=== PATIENT | male | born 1935 | race Caucasian/White ===

== ENCOUNTER 2018-08-22 21:32 | Emergency (ER) | payer MEDICARE, OTHER, SELFPAY ==
[2018-08-22 21:39] VITALS: BP 163/83; PULSE 68; RESP 18; TEMP 36.4; O2SAT 97; BMI 25.8
[2018-08-23 00:05] VITALS: BP 137/75; PULSE 70; RESP 16; O2SAT 100
--- NOTE | 2018-08-23 00:25 | ED_ITS ---
HPI - Extremity Problem General Chief complaint: Extremity Problem,Nontraumatic Stated complaint: THINKS HE HAD A STROKE Time Seen by Provider: 08/23/18 00:24 Source: patient Mode of arrival: ambulatory Limitations: no limitations History of Present Illness HPI Narrative: The patient developed right elbow pain earlier today, he had no trauma. He is on medications for hypertension, he was initially concerned about stroke. He has had no weakness, or numbness anywhere. He had only the right elbow pain, increased with motion. His blood pressure was 180 at that time. His blood pressure is much improved now, 135 as I visit him. The pain is decreasing. 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 He has no other other significant history of arthritis. He is right-hand dominant. Related Data Home Medications Medication Instructions Recorded Confirmed bimatoprost [Lumigan] 1 drp OP Q DAY #0 01/02/17 11/18/17 clopidogrel 75 mg PO Q DAY #0 01/02/17 11/18/17 doxazosin [Cardura XL] 8 mg PO Q DAY #0 01/02/17 11/18/17 hydrochlorothiazide 12.5 mg PO Q DAY #0 01/02/17 11/18/17 losartan 25 mg PO Q DAY #0 01/02/17 11/18/17 metoprolol succinate [Toprol XL] 25 mg PO Q DAY #0 01/02/17 11/18/17 timolol maleate [Timoptic] 1 drp OP #0 01/02/17 11/18/17 allopurinol 100 mg tablet 100 mg PO DAILY 11/18/17 11/18/17 amlodipine 10 mg tablet 10 mg PO DAILY 11/18/17 11/18/17 rosuvastatin 10 mg tablet 10 mg PO DAILY 11/18/17 11/18/17 Allergies Allergy/AdvReac Type Severity Reaction Status Date / Time No Known Drug Allergies Allergy Unverified 11/18/17 13:22 Review of Systems Constitutional Denies chills, Denies lethargy and Denies weakness Integumentary/Breasts Denies pruritus, Denies erythema, Denies rash and Denies wounds Neurologic Denies weakness Comments: No numbness or weakness in the right arm. [facility] Medical History (Updated 08/23/18 @ 08:46 by Vasiliy Ring MD) Hypertension (Acute) Osteoarthritis (Acute) Surgical History (Updated 08/23/18 @ 08:41 by Vasiliy Ring MD) Previous back surgery (Acute) Total knee replacement status (Acute) Social History Smoking Status: Former smoker alcohol intake: current Social History Smoking Status: Former smoker alcohol intake: current Exam Initial Vital Signs Initial Vital Signs: Vital Signs Temperature 97.5 F L 08/22/18 21:39 Pulse Rate 68 08/22/18 21:39 Respiratory Rate 18 08/22/18 21:39 Blood Pressure 163/83 H 08/22/18 21:39 Pulse Oximetry 97 08/22/18 21:39 Const General: cooperative and well developed Nutritional Appearance: well nourished Orientation: alert, awake, oriented x3 and not confused Neuro Gait: normal gait Motor: No muscle tone normal throughout Sensory Exam: sensory deficits noted Extrem Other: The patient complained of right elbow pain. On exam he has likely osteoarthritis. He cannot extend the elbow, dramatically different from the left elbow. He has pain with attempted full extension. The biceps and forearm are nontender. His full range of motion in right wrist. Her hand is neurovascularly intact Course Course Narrative: The patient was seen after an extended ear weight due to multiple high acuity patient's. He and his had already conversed with the nurse that they were considering leaving without being seen. I did evaluate the patient. Based on my assessment my intent was x-ray of the right elbow and likely give him information to arrange an orthopedics consult. The elbow x-ray was ordered. Anticipated or even x-ray, when I did there was no x-ray. Immuno STEMI the patient is had walked out after my initial evaluation. Orders Ordered: ED Orders 08/23/18 00:30 XR elbow RT min 3V Stat Vital Signs - 8 hr 08/23/18 00:41 08/23/18 00:53 Pulse Rate 62 60 Respiratory Rate 17 18 Blood Pressure 159/75 H Blood Pressure [Left Arm] 159/75 H Pulse Oximetry 96 Discharge Plan Departure Patient Disposition: Left Against Medical Advice Clinical Impression: Patient left before treatment completed, Elbow pain, right Discharge Date/Time: 08/23/18 00:58 Interventions: ED Discharge Assessment Last Done: 08/23/18 00:53 Activity Restrictions/Additional Instructions: During the exam it was suggested the patient see an orthopedic surgeon. 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 He has no local physician is unclear if he will do anything to do with the elbow. Prescriptions: No Action allopurinol 100 mg tablet 100 mg PO DAILY RF: 0 amlodipine 10 mg tablet 10 mg PO DAILY RF: 0 rosuvastatin [Crestor] 10 mg tablet 10 mg PO DAILY RF: 0 bimatoprost [Lumigan] 0.01 % drops 1 drp OP Q DAY Qty: 0 RF: 0 clopidogrel 75 MG tablet 75 mg PO Q DAY Qty: 0 RF: 0 losartan 25 MG tablet 25 mg PO Q DAY Qty: 0 RF: 0 hydrochlorothiazide 12.5 MG capsule 12.5 mg PO Q DAY Qty: 0 RF: 0 doxazosin [Cardura XL] 8 MG tablet extended release 24hr 8 mg PO Q DAY Qty: 0 RF: 0 timolol maleate [Timoptic] 0.25 % drops 1 drp OP Qty: 0 RF: 0 metoprolol succinate [Toprol XL] 25 MG tablet extended release 24 hr 25 mg PO Q DAY Qty: 0 RF: 0 Stand Alone Forms: Against Medical Advice
[2018-08-23 00:41] VITALS: BP 159/75; PULSE 62; RESP 17; O2SAT 96
[2018-08-23 00:53] VITALS: BP 159/75; PULSE 60; RESP 18
== END 2018-08-23 00:58 | disposition left against medical advice (07) ==
PROVIDERS: Emergency Provider Emergency Medicine
DX: M25.521 Pain in right elbow (principal); Z53.20 Procedure and treatment not carried out because of patient's decision for unspecified reasons
CPT/HCPCS: 99282

== ENCOUNTER 2021-12-04 11:26 | Inpatient (IN) | payer MEDICARE, OTHER, SELFPAY ==
[2021-12-04] VITALS (12 sets, daily range): BP systolic 135–176; BP diastolic 73–90; PULSE 59–74; RESP 15–24; TEMP 35.7–36.8; O2SAT 96–98; BMI 26.3; BMI 27.7
--- NOTE | 2021-12-04 11:56 | DI.CT.S_ITS ---
PROCEDURE: CT HEAD/BRAIN WO CON INDICATIONS: possible stroke TECHNIQUE: Noncontrast 4.5 mm thick angled axial sections acquired from the foramen magnum to the vertex, with coronal and sagittal reformats. For radiation dose reduction, the following was used: automated exposure control, adjustment of mA and/or kV according to patient size. COMPARISON: [facility], CT, CT ANGIO HEAD AND NECK, 12/04/2021, 12:23. [facility], CT, HEAD WITHOUT CONTRAST, 12/04/2008, 19:50. FINDINGS: Image quality: Mild streak artifact can be seen through the skull base. CSF spaces: Basal cisterns are patent. No extra-axial fluid collections. The ventricles are symmetric in size and shape. Brain: No intracranial bleeds or masses. There is cerebral volume loss for age, with resultant ventricular and sulcal prominence. There are periventricular and deep white matter chronic small vessel ischemic changes. There is intracranial internal carotid artery atherosclerosis. Skull and face: Calvarium and visualized facial bones appear intact, without suspicious lesions. Sinuses: There is complete opacification of the visualized right maxillary sinus. The paranasal sinuses are otherwise unremarkable. No abnormal fluid is seen within the mastoid air cells. IMPRESSION: No acute intracranial hemorrhage is seen. No acute intracranial process is seen. If there is strong clinical suspicion for an acute stroke, please consider a brain MRI for further evaluation, as it is more sensitive (assuming that there is no contraindication to MRI). Focal right maxillary sinus disease is noted. Dictated by: Manish Barkley M.D. on 12/04/2021 at 11:54 Approved by: Manish Barkley M.D. on 12/04/2021 at 11:55
--- NOTE | 2021-12-04 11:57 | DI.CT.S_ITS ---
PROCEDURE: CT ANGIO HEAD AND NECK INDICATIONS: possible stroke TECHNIQUE: After the administration of intravenous contrast, 1 mm thick sections acquired from the aortic arch through the [place] of [place]. Post-contrast 4.5 mm thick sections then re-acquired from the foramen magnum to the vertex. 3-dimensional pskucba-nhtgflfrg-yofmkmllbv (MIP) and/or volume rendering reformats were acquired of the central intracranial vasculature and neck separately. For radiation dose reduction, the following was used: automated exposure control, adjustment of mA and/or kV according to patient size. COMPARISON: [facility], CT, CT HEAD/BRAIN WO CON, 12/04/2021, 12:23. [facility], CR, XR CHEST 1V, 12/04/2021, 12:06. FINDINGS: Image quality: Mild streak artifact can be seen through the skull base. BRAIN: CSF spaces: Ventricles are normal in size and shape. Basal cisterns are patent. No extra-axial fluid collections. Brain: No midline shift. No intracranial bleeds or masses. [place]-white matter interface appears intact. Skull and face: Calvarium and facial bones appear intact, without suspicious lesions. Orbits appear normal. Sinuses: Focal right maxillary sinus disease is seen, with complete opacification. There is demineralization of the medial wall of the right maxillary sinus. Sinuses and mastoids are otherwise clear. HEAD CT ANGIOGRAPHY: Anterior circulation: Intracranial internal carotid arteries are normal in size and flow. The flow within the paired anterior cerebral arteries is normal and symmetric. The flow within the middle cerebral arteries is normal and symmetric. The anterior communicating artery is seen. No aneurysms are seen. Posterior circulation: Visualized portions of the vertebral arteries demonstrate normal caliber, and join to form a normal appearing basilar artery. There is a prominent left posterior communicating artery seen, with an accompanying diminutive left P1 segment. This is attributed to a type origin of the left posterior cerebral artery, which is considered to be a normal developmental variant of typically no clinical consequence. Flow within the posterior cerebral arteries is normal and symmetric. No aneurysms are seen. NECK CT ANGIOGRAPHY: Carotid system: The great vessels demonstrate a conventional anatomy as they arise from the aortic arch. The origins of the common carotid arteries appear patent. The common carotid arteries demonstrate normal caliber and courses. The bifurcation regions , left worse than right. There is approximately 30% narrowing seen involving the left proximal internal carotid artery and there is approximately 20% narrowing involving the right proximal internal carotid artery. The more distal internal carotid arteries demonstrate normal caliber, although they are highly tortuous. Posterior circulation: The origins of the vertebral arteries both appear widely patent. The more superior extracranial extracranial portions of both vertebral arteries also demonstrate normal courses and calibers. The left vertebral artery is dominant to the right. Soft tissues: Visualized neck soft tissues demonstrate no suspicious abnormalities. Mild emphysematous changes can be seen at the lung apices. Bones: No suspicious bony lesions. Visualized cervical spine appears normally aligned. C5-C6 postoperative hardware is seen. Focal degenerative change is seen involving the C1-C2 interface anteriorly. Sternotomy wires are seen. IMPRESSION: No hemodynamically significant stenosis can be seen. Incidental note is made of: Fuhjmy-yb-Csqgow developmental anomalies. Left vertebral artery dominant to the right Chronic right maxillary sinus disease Highly tortuous distal internal carotid arteries. C5-C6 postoperative hardware Mild emphysematous changes Sternotomy Any quantitative measurements of stenosis were performed using NASCET criteria. Dictated by: Manish Barkley M.D. on 12/04/2021 at 11:56 Approved by: Manish Barkley M.D. on 12/04/2021 at 12:02
--- NOTE | 2021-12-04 12:01 | DI.RAD.S_ITS ---
PROCEDURE: XR CHEST 1V INDICATIONS: Possible stroke TECHNIQUE: One view of the chest was acquired. COMPARISON: None. FINDINGS: Surgical changes and devices: Sternotomy wires and aortic valve prosthesis can be seen. There is partial visualization of cervical spine fixation hardware. Lungs and pleura: Lungs are clear. No pleural effusions or pneumothorax. Mediastinum: The cardiac contours are within normal limits. The aorta demonstrates calcification and tortuosity. Bones and chest wall: No suspicious bony lesions. Age-appropriate bony degenerative changes are seen. Overlying soft tissues appear unremarkable. IMPRESSION: Clear lungs. Postoperative and degenerative changes are seen. Dictated by: Manish Barkley M.D. on 12/04/2021 at 11:28 Approved by: Manish Barkley M.D. on 12/04/2021 at 11:28
--- NOTE | 2021-12-04 12:07 | ED_ITS ---
HPI - Neuro Symptoms/Deficit General Chief Complaint: Neuro Symptoms/Deficit Stated Complaint: stroke during the night (2am) Time Seen by Provider: 12/04/21 12:01 Source: patient Mode of arrival: Ambulatory Limitations: no limitations History of Present Illness HPI Narrative: This is a 86-year-old male history of hypertension, gout, prior valve replacement and possible cardiac stent. Who comes to emergency department with complaint of stroke. Patient states last night he was sleeping in his easy chair he woke up in the middle of the night and states he tried to get out of the bed but he could not and he was too weak. He appreciated that his right side his working less than normal. He states this morning he still moving slow and feels like it is more on the right side compared to the left. He also not iced some speech change and his neighbor who is present states they no significant slurring to his speech which is atypical. Patient is normally quite active and is not able to ambulate is easily or quickly today. Patient denies any numbness or tingling in his extremities. He denies any headaches, no acute vision changes, denies chest pain, shortness of breath, no nausea or vomiting, no issues with bowel movements or urination. States he has a remote history of stroke and describes it as having a stent placed in his chest. Patient states that he had a stent placed in his chest which may be cardiac, had valve replacement which he states is poor seen but denies CABG, had multiple orthoped ic surgeries and states he had a right femur fracture in 2020 still has some chronic pain in this lower extremity. He does not think he is ever had aneurysm or triple a repair. Patient denies any allergies. No tobacco, 1-1/2 alcoholic drinks daily, no illicit he uses some topical THC in his right lower extremity. He lives in [place] and spent his moser locally in [place]. His primary care is Dr. Kimbrough in [facility]. Patient's medications include valsartan, amlodipine, allopurinol, doxazosin, metoprolol patient states he does not take any aspirin or other blood thinners. He states he is supposed to take aspirin but has quit some time ago. Patient is . On Anticoagulants: No Related Data Home Medications Medication Instructions Recorded Confirmed doxazosin 8 mg tablet,extended 8 mg PO Q DAY ##0 01/02/17 12/04/21 release 24 hr (Cardura XL) metoprolol succinate 25 mg 50 mg PO Q DAY ##0 01/02/17 12/04/21 tablet,extended release 24 hr (Toprol XL) allopurinol 100 mg tablet 200 mg PO DAILY 11/18/17 12/04/21 amlodipine 10 mg tablet 5 mg PO BID 11/18/17 12/04/21 valsartan 160 mg tablet 160 mg PO BID 12/04/21 12/04/21 Allergies Allergy/AdvReac Type Severity Reaction Status Date / Time No Known Drug Allergies Allergy Unverified 11/18/17 13:22 Review of Systems Review of Systems ROS Unobtainable: All systems reviewed & are unremarkable except as noted in HPI and below Hematologic/Lymphatic On Anticoagulants: No Patient History Medical History Hypertension Osteoarthritis Surgical History Previous back surgery Total knee replacement status Social History household members: none Smoking Status: Former smoker alcohol intake: current Smoking Status: Former smoker Substance Use Type: does not use Exam Narrative Exam Narrative: GEN: well nourished, well appearing male, alert and oriented x [default value], patient appears to be in mild distress. HEENT: Atraumatic, pupils are equal round reactive to light, extraocular movements are intact, nares are clear, TMs are clear with no fluid, there is no conjunctival pallor. Throat is clear without any exudates, erythema, tonsillar enlargement or uvular deviation, no facial droop with smile but I do appreciate some decreased movement of the right cheek puffing of cheeks. HEART: Regular rate and rhythm without murmur, clicks, rubs. LUNGS:Lungs clear to auscultation, no wheezes, rales, crackles, chest moves symmetrically ABD:bowel sounds normal, soft, non-tender, no guarding, rebound, rigidity, no ma sses noted, no hepatosplenomegaly MSCL: Non-tender, no muscle atrophy, muscles strength 5/5 upper and lower extremities although patient does appear to have a little bit more difficulty with his right leg but he does mention that he has more pain on the right side, full range of motion. Gait not tested. NEURO:CN 2-12 intact, sensation normal,finger nose finger test normal, heel gonzalez test -patient has some very mild difficulty on the right but does have chronic pain in that lower extremity, no issues with the left heel to his right leg, patient does have some slurred speech, no aphasia. Initial Vital Signs Initial Vital Signs: Vital Signs Temperature 98.2 F 12/04/21 11:42 Pulse Rate 74 12/04/21 11:42 Respiratory Rate 20 12/04/21 11:42 Blood Pressure 176/90 H 12/04/21 11:42 Pulse Oximetry 98 12/04/21 11:42 Oxygen Delivery Method 12/04/21 11:42 Scores NIH Stroke Scale Level of Conciousness: Alert, keenly responsive Ask month/age: Answers both questions correctly. Open/close eyes, close hand: Performs both tasks correctly Best gaze horizontal: Normal Visual kumar: No visual loss Facial palsy: Minor paralysis, flattened nasolabial fold, asymmetry on smiling Left arm drift: No drift for full 10 sec Right arm drift: No drift for full 10 sec Left leg drift: No drift for full 5 sec Right leg drift: Drifts down, not to bed Limb ataxia: Present in one limb Sensory on face/arms/legs: Normal, no sensory loss Best language: No aphasia, normal Dysarthria: Mild to mod,some slurring Extinction or inattention: No abnormality Total NIH Stroke scale score: 4 Course Orders Ordered: ED Orders 12/04/21 11:41 Complete Blood Count AUTO DIFF Stat Comprehensive Metabolic Panel Stat Magnesium Stat Partial Thromboplastin Time Stat Prothrombin Time INR Stat Troponin & CK Cardiac Panel Stat 12/04/21 11:56 CT head/brain wo con Stat 12/04/21 11:57 CT angio head and neck Stat 12/04/21 12:01 XR chest 1V Stat 12/04/21 13:06 COVID19 -Nasal RAPID/Pre-Proc Stat 12/04/21 13:16 Urine Culture Stat Urine Drug Screen, Rapid Stat Urine Microscopic Stat 12/04/21 13:23 Urine Culture Stat 12/04/21 16:20 Consult to Discharge Planning Routine Consult to Occupational Therapy Evaluate & Treat Consult to Physical Therapy Evaluate & Treat Education, smoking cessation ONGOING Acetaminophen (Acetaminophen 325 Mg Tablet) 650 mg PO Q6HR PRN PRN Reason: Fever/Mild Pain (1-3) Aspirin (Aspirin Ec 81 Mg Tablet) 81 mg PO DAILY MAYDA Atorvastatin Calcium (Atorvastatin 20 Mg Tablet) 80 mg PO BEDTIME MAYDA Clopidogrel Bisulfate (Clopidogrel 75 Mg Tablet) 75 mg PO DAILY MAYDA Labetalol HCl (Labetalol 20 Mg/4 Ml Syringe) 5 mg IV Q4HR PRN PRN Reason: for BP >220/120 Discontinued Medications Aspirin (Aspirin 81 Mg Chew Tab) 324 mg PO NOW ONE Stop: 12/04/21 14:04 Last Admin: 12/04/21 14:10 Dose: 324 mg Documented By: SB Atorvastatin Calcium (Atorvastatin 20 Mg Tablet) 40 mg PO BEDTIME MAYDA Clopidogrel Bisulfate (Clopidogrel 75 Mg Tablet) 300 mg PO NOW ONE Stop: 12/04/21 16:42 Last Admin: 12/04/21 17:20 Dose: 300 mg Documented By: HCW Consultations Consultation #1: Dr. Vega, hospitalist. Kindly accepts for admission. Head CT CT angio do not show acute changes, aspirin, no other clear cause for symptoms is weakness has been improving he is able to ambulate but appreciate some weakness still in the right although NIH he does quite well, he has some chronic right femur pain which might be affecting his leg but he does clearly have some dysarthria. Vital Signs Vital signs: Vital Signs - 8 hr 12/04/21 11:42 12/04/21 12:00 12/04/21 12:05 Temperature 98.2 F Pulse Rate 74 65 64 Respiratory Rate 20 18 18 Blood Pressure 176/90 H 165/77 H Pulse Oximetry 98 96 97 Oxygen Delivery Method Room Air Room Air Room Air 12/04/21 12:29 12/04/21 12:30 12/04/21 12:30 Temperature Pulse Rate 60 68 Respiratory Rate 22 Blood Pressure 148/73 H Pulse Oximetry 98 97 Oxygen Delivery Method Room Air 12/04/21 13:00 12/04/21 13:15 12/04/21 13:15 Temperature Pulse Rate 59 L 61 Respiratory Rate 18 16 Blood Pressure 157/75 H Pulse Oximetry 98 97 Oxygen Delivery Method 12/04/21 13:30 12/04/21 14:00 12/04/21 14:30 Temperature Pulse Rate 61 59 L 60 Respiratory Rate 24 16 22 Blood Pressure Pulse Oximetry 98 97 97 Oxygen Delivery Method Room Air MDM - Neuro Symptoms/Deficit Lab Data Result diagrams: 12/04/21 11:41 12/04/21 11:41 Labs: Lab Results 12/04/21 12/04/21 12/04/21 Range/Units 11:41 11:41 11:41 WBC 4.5 (4.5-11.0) X10^3/uL RBC 4.86 (4.5-5.9) X10^6/uL Hgb 15.9 (13.5-17.5) g/dL Hct 46.4 (41-53) % MCV 95.4 (80-100) fL MCH 32.8 (26-34) PG MCHC 34.4 (30-36) % RDW 15.6 H (11.6-14.8) % Plt Count 139 L (150-400) X10^3/uL Neut % (Auto) 73.0 (50-75) % Lymph % (Auto) 15.5 L (25-40) % Mathews % (Auto) 8.6 (3-14) % Eos % (Auto) 2.2 (2-4) % Baso % (Auto) 0.7 (0-2) % Neut # (Auto) 3300 (7424-8159) /uL Lymph # (Auto) 700 L (5127-7504) /uL Mathews # (Auto) 400 (0-900) /uL Eos # (Auto) 100 (0-450) /uL Baso # (Auto) 0 (0-100) /uL PT 12.0 (10.1-12.7) SECONDS INR 1.0 (0.9-1.3) APTT 31 (26-36) SECONDS Sodium 143 (137-145) mmol/L Potassium 4.1 (3.4-5.1) mmol/L Chloride 108 H (98-107) mmol/L Carbon Dioxide 27 (22-32) mmol/L BUN 20 (9-20) mg/dL Creatinine 1.00 (0.66-1.25) mg/dL Estimated GFR > 60 (>60) mL/min BUN/Creatinine Ratio 20.0 (6-22) Glucose 99 (80-110) mg/dL Hemoglobin A1c (4.0-6.0) % Calcium 9.2 (8.4-10.2) mg/dL Magnesium 1.9 (1.6-2.3) mg/dL Total Bilirubin 1.4 H (0.2-1.3) mg/dL AST 27 (17-59) IU/L ALT 22 (<50) IU/L Alkaline Phosphatase 78 (38-126) U/L Total Creatine Kinase 41 L (55-170) U/L CK-MB (CK-2) TNP CK-MB (CK-2) Rel Index TNP Troponin I < 0.012 (0.01-0.034) ng/mL Total Protein 8.1 (6.3-8.2) g/dL Albumin 4.5 (3.5-5.0) g/dL Globulin 3.6 (1.7-4.1) g/dL Albumin/Globulin Ratio 1.3 (1.0-2.8) TSH (0.47-4.68) uIU/mL Urine RBC (0-5/HPF) Urine WBC (0-5/HPF) Ur Squamous Epith Cells (0-5/HPF) Urine Bacteria (None) Urine Yeast (None) Ur Culture Indicated? U Opiates 300ng/mL cut (Negative) Ur Oxycodone Screen (Negative) Urine Methadone Screen (Negative) Ur Barbiturates Screen (Negative) U Tricyclic Antidepress (Negative) Ur Phencyclidine Scrn (Negative) Ur Amphetamines Screen (Negative) U Methamphetamines Scrn (Negative) Ur MDMA Scrn (Ecstasy) (Negative) U Benzodiazepines Scrn (Negative) Urine Cocaine Screen (Negative) U Marijuana (THC) Screen SARS-CoV-2 (PCR) (Negative) 12/04/21 12/04/21 12/04/21 Range/Units 11:41 11:41 13:06 WBC (4.5-11.0) X10^3/uL RBC (4.5-5.9) X10^6/uL Hgb (13.5-17.5) g/dL Hct (41-53) % MCV (80-100) fL MCH (26-34) PG MCHC (30-36) % RDW (11.6-14.8) % Plt Count (150-400) X10^3/uL Neut % (Auto) (50-75) % Lymph % (Auto) (25-40) % Mathews % (Auto) (3-14) % Eos % (Auto) (2-4) % Baso % (Auto) (0-2) % Neut # (Auto) (1271-9252) /uL Lymph # (Auto) (0551-2503) /uL Mathews # (Auto) (0-900) /uL Eos # (Auto) (0-450) /uL Baso # (Auto) (0-100) /uL PT (10.1-12.7) SECONDS INR (0.9-1.3) APTT (26-36) SECONDS Sodium (137-145) mmol/L Potassium (3.4-5.1) mmol/L Chloride (98-107) mmol/L Carbon Dioxide (22-32) mmol/L BUN (9-20) mg/dL Creatinine (0.66-1.25) mg/dL Estimated GFR (>60) mL/min BUN/Creatinine Ratio (6-22) Glucose (80-110) mg/dL Hemoglobin A1c 5.2 (4.0-6.0) % Calcium (8.4-10.2) mg/dL Magnesium (1.6-2.3) mg/dL Total Bilirubin (0.2-1.3) mg/dL AST (17-59) IU/L ALT (<50) IU/L Alkaline Phosphatase (38-126) U/L Total Creatine Kinase (55-170) U/L CK-MB (CK-2) CK-MB (CK-2) Rel Index Troponin I (0.01-0.034) ng/mL Total Protein (6.3-8.2) g/dL Albumin (3.5-5.0) g/dL Globulin (1.7-4.1) g/dL Albumin/Globulin Ratio (1.0-2.8) TSH 0.96 (0.47-4.68) uIU/mL Urine RBC (0-5/HPF) Urine WBC (0-5/HPF) Ur Squamous Epith Cells (0-5/HPF) Urine Bacteria (None) Urine Yeast (None) Ur Culture Indicated? U Opiates 300ng/mL cut (Negative) Ur Oxycodone Screen (Negative) Urine Methadone Screen (Negative) Ur Barbiturates Screen (Negative) U Tricyclic Antidepress (Negative) Ur Phencyclidine Scrn (Negative) Ur Amphetamines Screen (Negative) U Methamphetamines Scrn (Negative) Ur MDMA Scrn (Ecstasy) (Negative) U Benzodiazepines Scrn (Negative) Urine Cocaine Screen (Negative) U Marijuana (THC) Screen SARS-CoV-2 (PCR) Negative (Negative) 12/04/21 12/04/21 Range/Units 13:16 13:16 WBC (4.5-11.0) X10^3/uL RBC (4.5-5.9) X10^6/uL Hgb (13.5-17.5) g/dL Hct (41-53) % MCV (80-100) fL MCH (26-34) PG MCHC (30-36) % RDW (11.6-14.8) % Plt Count (150-400) X10^3/uL Neut % (Auto) (50-75) % Lymph % (Auto) (25-40) % Mathews % (Auto) (3-14) % Eos % (Auto) (2-4) % Baso % (Auto) (0-2) % Neut # (Auto) (9737-5382) /uL Lymph # (Auto) (4239-7974) /uL Mathews # (Auto) (0-900) /uL Eos # (Auto) (0-450) /uL Baso # (Auto) (0-100) /uL PT (10.1-12.7) SECONDS INR (0.9-1.3) APTT (26-36) SECONDS Sodium (137-145) mmol/L Potassium (3.4-5.1) mmol/L Chloride (98-107) mmol/L Carbon Dioxide (22-32) mmol/L BUN (9-20) mg/dL Creatinine (0.66-1.25) mg/dL Estimated GFR (>60) mL/min BUN/Creatinine Ratio (6-22) Glucose (80-110) mg/dL Hemoglobin A1c (4.0-6.0) % Calcium (8.4-10.2) mg/dL Magnesium (1.6-2.3) mg/dL Total Bilirubin (0.2-1.3) mg/dL AST (17-59) IU/L ALT (<50) IU/L Alkaline Phosphatase (38-126) U/L Total Creatine Kinase (55-170) U/L CK-MB (CK-2) CK-MB (CK-2) Rel Index Troponin I (0.01-0.034) ng/mL Total Protein (6.3-8.2) g/dL Albumin (3.5-5.0) g/dL Globulin (1.7-4.1) g/dL Albumin/Globulin Ratio (1.0-2.8) TSH (0.47-4.68) uIU/mL Urine RBC 1-5/hpf (0-5/HPF) Urine WBC >100/hpf H (0-5/HPF) Ur Squamous Epith Cells 1-5 /hpf (0-5/HPF) Urine Bacteria Few (2-10) H (None) Urine Yeast 10-30/hpf H (None) Ur Culture Indicated? Specimen cultured U Opiates 300ng/mL cut Positive H (Negative) Ur Oxycodone Screen Negative (Negative) Urine Methadone Screen Negative (Negative) Ur Barbiturates Screen Negative (Negative) U Tricyclic Antidepress Negative (Negative) Ur Phencyclidine Scrn Negative (Negative) Ur Amphetamines Screen Negative (Negative) U Methamphetamines Scrn Negative (Negative) Ur MDMA Scrn (Ecstasy) Negative (Negative) U Benzodiazepines Scrn Negative (Negative) Urine Cocaine Screen Negative (Negative) U Marijuana (THC) Screen TNP SARS-CoV-2 (PCR) (Negative) Point of Care Testing Glucose POC 104 Urine Dip Bedside Urine Glucose Negative Bedside Urine Bilirubin - Negative Bedside Urine Ketone - Negative Urine Specific [place] 1.030 Bedside Urine Occult Blood + Bedside Urine pH 6.0 Bedside Urine Protein + 30 Bedside Urine Urobilinogen - Negative Bedside Urine Nitrite - Negative Bedside Urine Leukocytes + 70 Esterase Imaging Data Chest x-ray: Radiologist's Impression: Close Chest X-Ray (Signed) Manish Barkley - 12/04/21 Launch?[address] [address] XRay Report Signed Patient: Jasvir Underwood MR#: [id number] : 1935 Acct:[id number] Age/Sex: 86 / M Date of Service: 12/04/21 Loc: ED Accession Number: [id number] ?? Procedure: XR chest 1V Ordering Provider: Makenna Oconnell D.O. PROCEDURE:? XR CHEST 1V ? INDICATIONS:? Possible stroke ? TECHNIQUE:? One view of the chest was acquired.? ? COMPARISON:? None. ? FINDINGS:? ? Surgical changes and devices:? Sternotomy wires and aortic valve prosthesis can be seen.? There is partial visualization of cervical spine fixation hardware. ? Lungs and pleura:? Lungs are clear.? No pleural effusions or pneumothorax.? ? Mediastinum:? The cardiac contours are within normal limits. The aorta demonstrates calcification and tortuosity. ? Bones and chest wall:? No suspicious bony lesions.? Age-appropriate bony degenerative changes are seen.? ? Overlying soft tissues appear unremarkable.? IMPRESSION:? ? Clear lungs. ? Postoperative and degenerative changes are seen.? ? ? Dictated by: Manish Barkley M.D. on 12/04/2021 at 11:28 ? ? Approved by: Manish Barkley M.D. on 12/04/2021 at 11:28?? CT scan - head: Radiologist's Impression: Jasvir Underwood??86??M??1935 ? Allergy/Adv: No Known Drug Allergies Close Brain MRI (Signed) Manish Barkley 12/04/21 Chest X-Ray (Signed) Manish Barkley 12/04/21 Head/Neck CTA (Signed) Manish Barkley 12/04/[address] (Signed) Manish Barkley 12/04/21 Launch?[place] [address] CT Scan Report Signed Patient: Jasvir Underwood MR#: [id number] : 1935 Acct:[id number] Age/Sex: 86 / M Date of Service: 12/04/21 Loc: ED Accession Number: [id number] ?? Procedure: CT head/brain wo con Ordering Provider: Makenna Oconnell D.O. PROCEDURE:? CT HEAD/BRAIN WO CON ? INDICATIONS:? possible stroke ? TECHNIQUE:? Noncontrast 4.5 mm thick angled axial sections acquired from the foramen magnum to the vertex, with coronal and sagittal reformats.? For radiation dose reduction, the following was used:? automated exposure control, adjustment of mA and/or kV according to patient size.? ? COMPARISON:? [facility], CT, CT ANGIO HEAD AND NECK, 12/04/2021, 12:23.? [facility], CT, HEAD WITHOUT CONTRAST, 12/04/2008, 19:50. ? FINDINGS:? Image quality:? Mild streak artifact can be seen through the skull base. ? CSF spaces:? Basal cisterns are patent.? No extra-axial fluid collections.? The ventricles are symmetric in size and shape.? ? Brain:? No intracranial bleeds or masses.? There is cerebral volume loss for age, with resultant ventricular and sulcal prominence.? There are periventricular and deep white matter chronic small vessel ischemic changes.? There is intracranial internal carotid artery atherosclerosis.? ? Skull and face:? Calvarium and visualized facial bones appear intact, without suspicious lesions.? ? Sinuses:? There is complete opacification of the visualized right maxillary sinus.? The paranasal sinuses are otherwise unremarkable. No abnormal fluid is seen within the mastoid air cells. ? ? IMPRESSION:? No acute intracranial hemorrhage is seen.? ? No acute intracranial process is seen.? ? If there is strong clinical suspicion for an acute stroke, please consider a brain MRI for further evaluation, as it is more sensitive (assuming that there is no contraindication to MRI). ? Focal right maxillary sinus disease is noted. ? ? Dictated by: Mnaish Barkley M.D. on 12/04/2021 at 11:54 ? ? Approved by: Manish Barkley M.D. on 12/04/2021 at 11:55? CTA - brain/neck: Radiologist's Impression: [address] [address] [address] Scan Report Signed Patient: Jasvir Underwood MR#: [id number] : 1935 Acct:[id number] Age/Sex: 86 / M Date of Service: 12/04/21 Loc: ED Accession Number: [id number] ?? Procedure: CT angio head and neck Ordering Provider: Makenna Oconnell D.O. PROCEDURE:? CT ANGIO HEAD AND NECK ? INDICATIONS:? possible stroke ? TECHNIQUE:? After the administration of intravenous contrast, 1 mm thick sections acquired from the aortic arch through the [place] of [place].? Post-contrast 4.5 mm thick sections then re-acquired from the foramen magnum to the vertex.? 3-dimensional jazqenn-uvcmroxck-jipzkezpqv (MIP) and/or volume rendering reformats were acquired of the central intracranial vasculature and neck separately. For radiation dose reduction, the following was used:? automated exposure control, adjustment of mA and/or kV according to patient size.? ? COMPARISON:? [facility], CT, CT HEAD/BRAIN WO CON, 12/04/2021, 12:23.? [facility], CR, XR CHEST 1V, 12/04/2021, 12:06. ? FINDINGS:? Image quality:? Mild streak artifact can be seen through the skull base. ? BRAIN:? CSF spaces:? Ventricles are normal in size and shape.? Basal cisterns are patent.? No extra-axial fluid collections.? ? Brain:? No midline shift.? No intracranial bleeds or masses.? Morocho-white matter interface appears intact.? ? Skull and face:? Calvarium and facial bones appear intact, without suspicious lesions.? Orbits appear normal.? ? Sinuses:? Focal right maxillary sinus disease is seen, with complete opacifi cation.? There is demineralization of the medial wall of the right maxillary sinus.? Sinuses and mastoids are otherwise clear.? ? HEAD CT ANGIOGRAPHY:? Anterior circulation:? Intracranial internal carotid arteries are normal in size and flow.? The flow within the paired anterior cerebral arteries is normal and symmetric.? The flow within the middle cerebral arteries is normal and symmetric.? The a nterior communicating artery is seen.? No aneurysms are seen.? ? Posterior circulation:? Visualized portions of the vertebral arteries demonstrate normal caliber, and join to form a normal appearing basilar artery. There is a prominent left posterior communicating artery seen, with an accompanying diminutive left P1 segment. This is attributed to a type origin of the left posterior cerebral artery, which is considered to be a normal developmental variant of typically no clinical consequence.? Flow within the posterior cerebral arteries is normal and symmetric.? No aneurysms are seen.? ? NECK CT ANGIOGRAPHY:? Carotid system:? The great vessels demonstrate a conventional anatomy as they arise from the aortic arch.? The origins of the common carotid arteries appear patent.? The common carotid arteries demonstrate normal caliber and courses.? The bifurcation regions , left worse than right.? There is approximately 30% narrowing seen involving the left proximal internal carotid artery and there is approximately 20% narrowing involving the right proximal internal carotid artery.? The more distal internal carotid arteries demonstrate normal caliber, although they are highly tortuous.? ? Posterior circulation:? The origins of the vertebral arteries both appear widely patent.? The more superior extracranial extracranial portions of both vertebral arteries also demonstrate normal courses and calibers.? The left vertebral artery is dominant to the right.? ? Soft tissues:? Visualized neck soft tissues demonstrate no suspicious abnormalities.? Mild emphysematous changes can be seen at the lung apices. ? Bones:? No suspicious bony lesions.? Visualized cervical spine appears normally aligned.? C5-C6 postoperative hardware is seen. Focal degenerative change is seen involving the C1-C2 interface anteriorly. ? Sternotomy wires are seen.? ? ? IMPRESSION:? No hemodynamically significant stenosis can be seen.? ? ? 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 ? ? Left vertebral artery dominant to the right Chronic right maxillary sinus disease Highly tortuous distal internal carotid arteries. C5-C6 postoperative hardware Mild emphysematous changes Sternotomy ? Any quantitative measurements of stenosis were performed using NASCET criteria.? ? ? Dictated by: Manish Barkley M.D. on 12/04/2021 at 11:56 ? ? Approved by: Manish Barkley M.D. on 12/04/2021 at 12:02?? ECG Data Attestation: I personally reviewed and interpreted this ECG as follows: Prior ECG tracings: available for review Interpretation: Sinus rhythm first-degree AV block, left axis deviation. Nonspecific T-wave change. Patient does have inverted T-waves in V2 and flattening in V3 which appear new from prior EKG in 2009. MDM Narrative Medical decision making narrative: This is an 86-year-old male who presents with wake-up stroke symptoms, patient states overnight he woke up could not get get up to walk he went back to sleep and got up this morning. He has continued weakness which he describes more on the right side as well as dysarthria which he and his friend at bedside ap preciate. Patient's NIH is 4, he may have some weakness of his right leg secondary to femur fracture and chronic pain but clearly has speech changes. Head CT CT angio do not show acute change, he is given aspirin in the department, no other electrolyte abnormalities or other clear causes. Spoke w ith hospitalist accepts for stroke workup, MRI etc.. Patient is agreeable to the plan all questions answered. Stroke Core Measures Exclusion Criteria TPA in CVA: Symptom Onset >3 or 4.5 Hours Discharge Plan Departure Patient Disposition: Admitted as Observation Clinical Impression: Acute CVA (cerebrovascular accident) Admit Date/Time: 12/04/21 15:16 Admit Provider: Scar Vega
[2021-12-04 12:12] LABS: Add Manual Diff / Slide Review NO; Basophils Absolute Auto 0 /uL (0-100); Basophils Percent Auto 0.7 % (0-2); Eosinophils Absolute Auto 100 /uL (0-450); Eosinophils Percent Auto 2.2 % (2-4); Hematocrit 46.4 % (41-53); Hemoglobin 15.9 g/dL (13.5-17.5); Lymphocytes Absolute Auto 700 /uL (1100-4500); Lymphocytes Percent Auto 15.5 % (25-40); Mean Corpuscular HGB Conc 34.4 % (30-36); Mean Corpuscular Hemoglobin 32.8 PG (26-34); Mean Corpuscular Volume 95.4 fL (80-100); Monocytes Absolute Auto 400 /uL (0-900); Monocytes Percent Auto 8.6 % (3-14); Neutrophils Absolute Auto 3300 /uL (1500-7000); Platelet Count 139 X10^3/uL (150-400); Red Blood Cell Count 4.86 X10^6/uL (4.5-5.9); Red Cell Distribution Width 15.6 % (11.6-14.8); White Blood Cell Count 4.5 X10^3/uL (4.5-11.0)
[2021-12-04 12:18] LABS: Alanine Aminotransferase 22 IU/L (<50); Albumin 4.5 g/dL (3.5-5.0); Albumin Globulin Ratio 1.3 (1.0-2.8); Alkaline Phosphatase 78 U/L (38-126); Aspartate Aminotransferase 27 IU/L (17-59); Bilirubin Total 1.4 mg/dL (0.2-1.3); Blood Urea Nitrogen 20 mg/dL (9-20); Calcium 9.2 mg/dL (8.4-10.2); Carbon Dioxide 27 mmol/L (22-32); Chloride 108 mmol/L (98-107); Creatine Kinase 41 U/L (55-170); Estimated Glomerular Filt Rate > 60 mL/min (>60); Globulin 3.6 g/dL (1.7-4.1); Glucose 99 mg/dL (80-110); HEMOLYSIS 24 (0-50); Magnesium 1.9 mg/dL (1.6-2.3); PTT Partial Thromboplastin Tim 31 SECONDS (26-36); Potassium 4.1 mmol/L (3.4-5.1); Sodium 143 mmol/L (137-145); Total Protein 8.1 g/dL (6.3-8.2)
[2021-12-04 12:30] LABS: Troponin I < 0.012 ng/mL (0.01-0.034)
[2021-12-04 13:27] LABS: COVID19 -Nasal RAPID Negative (Negative)
[2021-12-04 13:36] LABS: UR Morphine/Opiate cutoff 300 Positive (Negative); Ur Creatinine Normal (Normal); Ur Specific Gravity Normal (Normal); Urine Amphetamines Negative (Negative); Urine Barbiturates Negative (Negative); Urine Benzodiazepines Negative (Negative); Urine Cocaine Negative (Negative); Urine MDMA Negative (Negative); Urine Methadone Negative (Negative); Urine Methamphetamines Negative (Negative); Urine Oxycodone Negative (Negative); Urine Phencyclidine Negative (Negative); Urine Tricyclic Antidepressant Negative (Negative); Urine pH Normal (Normal)
[2021-12-04 13:39] LABS: Bacteria Urine Few (2-10); RBC Urine 1-5/HPF (0-5/HPF); Squamous Epithelial Cell Urine 1-5 /HPF (0-5/HPF); WBC Urine >100/HPF (0-5/HPF)
[2021-12-04 13:41] LABS: Culture Indicated Urine Specimen Cultured
[2021-12-04] MEDS: ASPIRIN 81 MG CHEW TAB 324 MG PO (14:10)
--- NOTE | 2021-12-04 15:22 | DI.ECHO.S_ITS ---
[facility]+ : : [address] : [address] : : : : [id number] : : : : Phone: [phone]+ Echocardiogram Report + + :Name: ANGEL HERRMANN Study Date: 12/05/2021 Height: 74 in : :[facility] ReadingLocation: Weight: 205 lb : : Gender: Male BSA: 2.2 m2 : :: 1935 Age: 86 yrs BP: 133/76 mmHg: :Reason For Study: Stroke : :Ordering Physician: Silvia, : :Scar Performed By: Etienne Watts : :Referring: Scar Vega : + + Interpretation Summary The patient was in normal sinus rhythm during the exam. The left ventricle is normal in size. There is mild concentric left ventricular hypertrophy. The ejection fraction is estimated to be 55-60%. Diastolic parameters suggest a pseudonormalization pattern, consistent with probable elevated filling pressures. Both atria are mildly dilated. The prosthetic aortic valve is well-seated. There is mild tricuspid regurgitation. The right ventricular systolic pressure is estimated to be at least 38 mmHg based on an estimated right atrial pressure of 8 mm Hg. The IVC is dilated (diameter is greater than 2.1 cm) yet it collapses greater than 50% with a sniff. This suggests a right atrial pressure of 8 mm Hg. Agitated saline study was not performed. No prior study for comparison. Procedure: A two-dimensional transthoracic echocardiogram with color flow and Doppler was performed. The study quality was technically adequate. There is no prior echocardiogram noted for this patient. The patient was in normal sinus rhythm during the exam. Left Ventricle: The left ventricle is normal in size. There is mild concentric left ventricular hypertrophy. Left ventricular systolic function is normal. The ejection fraction is estimated to be 55-60%. There are no focal wall motion abnormalities. Diastolic parameters suggest a pseudonormalization pattern, consistent with probable elevated filling pressures. Right Ventricle: The right ventricle is normal in size and function. Atria: Both atria are mildly dilated. The interatrial septum grossly appears intact with no obvious evidence for an atrial septal defect. Mitral Valve: There is mild mitral annular calcification. There is trace mitral regurgitation. Aortic Valve: There is a bioprosthetic aortic valve. The prosthetic aortic valve is well-seated. The aortic valve mean gradient is 24.5 mmHg. No aortic regurgitation is present. Tricuspid Valve: The tricuspid valve is normal in structure and function. There is mild tricuspid regurgitation. The right ventricular systolic pressure is estimated to be at least 38 mmHg based on an estimated right atrial pressure of 8 mm Hg. Pulmonic Valve: The pulmonic valve is normal in structure and function. There is no pulmonic valvular regurgitation. Great Vessels: The aortic root is not well visualized. The ascending aorta could not be visualized. The IVC is dilated (diameter is greater than 2.1 cm) yet it collapses greater than 50% with a sniff. This suggests a right atrial pressure of 8 mm Hg. Pericardium/ Pleura There is no pericardial effusion. There is no pleural effusion. MMode/2D Measurements & Calculations LVIDd: 4.9 cm LA A2 area: 24.6 cm2 LVIDs: 3.2 cm LA A4 area: 23.8 cm2 FS: 34.5 % LA length (vol): 6.0 cm IVSd: 1.4 cm LA vol: 82.8 ml LVPWd: 1.2 cm LA vol index: 37.7 ml/m2 LV yen. diameter/BSA (cm/m^2): 2.2 LV sys. diameter/BSA (cm/m^2): 1.5 RA long axis: 6.2 cm TAPSE: 1.8 cm RA area: 23.8 cm2 RA vol: 77.8 ml RA : 35.4 ml/m2 IVC diam: 2.5 cm Doppler Measurements & Calculations Ao V2 max: 334.9 cm/sec LVOT Max Akbar: 154.4 cm/sec Ao V2 mean: 235.5 cm/sec LV V1 max P.5 mmHg Ao max P.9 mmHg LV V1 VTI: 33.5 cm Ao mean P.5 mmHg sev ratio: 0.46 Ao V2 VTI: 73.0 cm MV E max akbar: 94.8 cm/sec TR max akbar: 271.7 cm/sec MV A max akbar: 123.1 cm/sec TR max P.5 mmHg MV E/A: 0.77 Med Peak E' Akbar: 6.9 cm/sec E/E' med: 13.8 Lat Peak E' Akbar: 5.8 cm/sec E/E' lat: 16.4 E/e' average: 15.1 MV dec time: 0.41 sec Reading Physician:AM
--- NOTE | 2021-12-04 15:22 | DI.MRI.S_ITS ---
PROCEDURE: MR HEAD/BRAIN WO CON INDICATIONS: Please evaluate for stroke TECHNIQUE: Non-contrast axial T1 spin echo, axial T2 fast spin echo, sagittal and axial FLAIR, coronal T2 fast spin echo, axial gradient echo, axial diffusion and ADC through the brain. COMPARISON: [facility], CT, HEAD WITHOUT CONTRAST, 12/04/2008, 19:50. [facility], CT, CT HEAD/BRAIN WO CON, 12/04/2021, 12:23. FINDINGS: Image quality: Excellent. CSF spaces: Ventricles appear symmetric in size and shape. Basal cisterns are patent. No extra-axial fluid collections. Brain: Along the medial aspect of the left thalamus, there is focal increased diffusion-weighted signal, with associated dark signal on the ADC map. There is mild developing increased T2 weighted signal seen at this site. No intracranial bleeds or mass effects. There is cerebral volume loss for age. There are periventricular and deep white matter chronic small vessel ischemic changes. Brainstem appears normal. No chronic ischemic insults. Normal intravascular flow voids are present. Skull and face: Calvarial bone marrow is normal in signal. Orbits are normal. Note is made of bilateral lens replacements. Sinuses: Complete opacification of the right maxillary sinus is seen, with no significant paranasal sinus disease seen elsewhere. No abnormal fluid is seen within the mastoid air cells. IMPRESSION: Subacute infarction seen involving the medial left thalamus. Incidental note is made of: Brain parenchymal volume loss Chronic small vessel ischemic change Bilateral lens replacement Focal right maxillary sinus disease Dictated by: Manish Barkley M.D. on 12/04/2021 at 15:33 Approved by: Manish Barkley M.D. on 12/04/2021 at 15:35
[2021-12-04 15:39] LABS: Hemoglobin A1C% w Est Avg Glu 5.2 % (4.0-6.0)
[2021-12-04 16:10] LABS: TSH w/ Reflex to FT4 0.96 uIU/mL (0.47-4.68)
[2021-12-04 16:30] LABS: Cholesterol 180 mg/dL (140-199); HDL Cholesterol 40 mg/dL (40-60); LDL Cholesterol Calculated 124 mg/dL (<100); Triglycerides 78 mg/dL (35-150)
--- NOTE | 2021-12-04 16:59 | P.HP_ITS ---
History of Present Illness History of Present Illness Date Patient Seen: 12/04/21 Time Patient Seen: 17:30 Chief complaint: stroke during the night (2am) Narrative: Jasvir lin is an 86-year-old male with past medical history of previous remote CVA, CAD s/p 3 stents, heart valve replacement, hypertension, osteoarthritis, and gout who presents with right sided weakness and speech difficulty overnight. He awoke at 2am and could not get out of his recliner due to weakness. Patient stays a portion of the year here in [place] but is originally from [place], [place]. He unfortunately waited until morning to come to the ED where he was found to have an NIH of 4. CT/CTA head and neck negative for stroke. Has some bilateral BOZENA of 30% and 20%. Apparently patient was supposed to be taking aspirin but he stopped it years ago despite his history of heart disease. Patient states he already feels like his symptoms are improving with strength returning in his right arm. His right leg continues to be more weak. His speech is improving. He denies chest pain, NV, SOB, diarrhea or urinary symptoms. Patient History Medical History Hypertension Osteoarthritis Surgical History Previous back surgery Total knee replacement status Family & Social History Social History: household members none Prior Living Arrangements House Safety & Behavioral: Feels Safe in Current Yes Environment Tobacco & Substance use: Smoking Status Former smoker alcohol intake current alcohol intake frequency 3 or more drinks per day Substance Use Type does not use Meds Home Medications and Allergies Home Medications Medication Instructions Recorded Confirmed Type doxazosin 8 mg tablet,extended 8 mg PO Q DAY ##0 01/02/17 12/04/21 History release 24 hr (Cardura XL) metoprolol succinate 25 mg 50 mg PO Q DAY ##0 01/02/17 12/04/21 History tablet,extended release 24 hr (Toprol XL) allopurinol 100 mg tablet 200 mg PO DAILY 11/18/17 12/04/21 History amlodipine 10 mg tablet 5 mg PO BID 11/18/17 12/04/21 History valsartan 160 mg tablet 160 mg PO BID 12/04/21 12/04/21 History Allergies Allergy/AdvReac Type Severity Reaction Status Date / Time No Known Drug Allergies Allergy Unverified 11/18/17 13:22 Review of Systems Review of Systems Narrative: All other systems reviewed with the patient and are negative unless otherwise stated. Exam Vital Signs (past 8 hours): - 12/04/21 11:42 12/04/21 12:00 12/04/21 12:05 Temperature 98.2 F Pulse Rate 74 65 64 Respiratory Rate 20 18 18 Blood Pressure 176/90 H 165/77 H Pulse Oximetry 98 96 97 Oxygen Delivery Method Room Air Room Air Room Air 12/04/21 12:29 12/04/21 12:30 12/04/21 12:30 Temperature Pulse Rate 60 68 Respiratory Rate 22 Blood Pressure 148/73 H Pulse Oximetry 98 97 Oxygen Delivery Method Room Air 12/04/21 13:00 12/04/21 13:15 12/04/21 13:15 Temperature Pulse Rate 59 L 61 Respiratory Rate 18 16 Blood Pressure 157/75 H Pulse Oximetry 98 97 Oxygen Delivery Method 12/04/21 13:30 12/04/21 14:00 12/04/21 14:30 Temperature Pulse Rate 61 59 L 60 Respiratory Rate 24 16 22 Blood Pressure Pulse Oximetry 98 97 97 Oxygen Delivery Method Room Air 12/04/21 16:53 Temperature 96.4 F L Pulse Rate 59 L Respiratory Rate 16 Blood Pressure 135/73 Pulse Oximetry 98 Oxygen Delivery Method Oxygen Delivery Method Room Air Narrative Exam Narrative: GEN: no acute distress, pleasant male with tanned appearance HEENT: moist mucous membranes, PERRL NECK: trachea midline, no JVD CV: regular rate and rhythm, 2/6 systolid murmur. Midline sternotomy scar present. PULM: clear bilaterally ABD: soft, nontender, nondistended, no organomegaly EXT: warm and well perfused with no edema NEURO: awake, alert, oriented, no facial droop, strength 5/5 in UE's and 3/5 in RLE Objective Labs Result Diagrams: 12/04/21 11:41 12/04/21 11:41 Labs: Laboratory Results - last 24 hr 12/04/21 12/04/21 12/04/21 11:41 11:41 11:41 WBC 4.5 RBC 4.86 Hgb 15.9 Hct 46.4 MCV 95.4 MCH 32.8 MCHC 34.4 RDW 15.6 H Plt Count 139 L Neut % (Auto) 73.0 Lymph % (Auto) 15.5 L [place] % (Auto) 8.6 Eos % (Auto) 2.2 Baso % (Auto) 0.7 Neut # (Auto) 3300 Lymph # (Auto) 700 L [place] # (Auto) 400 Eos # (Auto) 100 Baso # (Auto) 0 PT 12.0 INR 1.0 APTT 31 Sodium 143 Potassium 4.1 Chloride 108 H Carbon Dioxide 27 BUN 20 Creatinine 1.00 Estimated GFR > 60 BUN/Creatinine Ratio 20.0 Glucose 99 Hemoglobin A1c Calcium 9.2 Magnesium 1.9 Total Bilirubin 1.4 H AST 27 ALT 22 Alkaline Phosphatase 78 Total Creatine Kinase 41 L CK-MB (CK-2) TNP CK-MB (CK-2) Rel Index TNP Troponin I < 0.012 Total Protein 8.1 Albumin 4.5 Globulin 3.6 Albumin/Globulin Ratio 1.3 Triglycerides Cholesterol LDL Cholesterol, Calc HDL Cholesterol TSH Urine RBC Urine WBC Ur Squamous Epith Cells Urine Bacteria Urine Yeast Ur Culture Indicated? U Opiates 300ng/mL cut Ur Oxycodone Screen Urine Methadone Screen Ur Barbiturates Screen U Tricyclic Antidepress Ur Phencyclidine Scrn Ur Amphetamines Screen U Methamphetamines Scrn Ur MDMA Scrn (Ecstasy) U Benzodiazepines Scrn Urine Cocaine Screen U Marijuana (THC) Screen SARS-CoV-2 (PCR) 12/04/21 12/04/21 12/04/21 11:41 11:41 13:06 WBC RBC Hgb Hct MCV MCH MCHC RDW Plt Count Neut % (Auto) Lymph % (Auto) [place] % (Auto) Eos % (Auto) Baso % (Auto) Neut # (Auto) Lymph # (Auto) [place] # (Auto) Eos # (Auto) Baso # (Auto) PT INR APTT Sodium Potassium Chloride Carbon Dioxide BUN Creatinine Estimated GFR BUN/Creatinine Ratio Glucose Hemoglobin A1c 5.2 Calcium Magnesium Total Bilirubin AST ALT Alkaline Phosphatase Total Creatine Kinase CK-MB (CK-2) CK-MB (CK-2) Rel Index Troponin I Total Protein Albumin Globulin Albumin/Globulin Ratio Triglycerides Cholesterol LDL Cholesterol, Calc HDL Cholesterol TSH 0.96 Urine RBC Urine WBC Ur Squamous Epith Cells Urine Bacteria Urine Yeast Ur Culture Indicated? U Opiates 300ng/mL cut Ur Oxycodone Screen Urine Methadone Screen Ur Barbiturates Screen U Tricyclic Antidepress Ur Phencyclidine Scrn Ur Amphetamines Screen U Methamphetamines Scrn Ur MDMA Scrn (Ecstasy) U Benzodiazepines Scrn Urine Cocaine Screen U Marijuana (THC) Screen SARS-CoV-2 (PCR) Negative 12/04/21 12/04/21 12/04/21 13:16 13:16 16:21 WBC RBC Hgb Hct MCV MCH MCHC RDW Plt Count Neut % (Auto) Lymph % (Auto) [place] % (Auto) Eos % (Auto) Baso % (Auto) Neut # (Auto) Lymph # (Auto) [place] # (Auto) Eos # (Auto) Baso # (Auto) PT INR APTT Sodium Potassium Chloride Carbon Dioxide BUN Creatinine Estimated GFR BUN/Creatinine Ratio Glucose Hemoglobin A1c Calcium Magnesium Total Bilirubin AST ALT Alkaline Phosphatase Total Creatine Kinase CK-MB (CK-2) CK-MB (CK-2) Rel Index Troponin I Total Protein Albumin Globulin Albumin/Globulin Ratio Triglycerides 78 Cholesterol 180 LDL Cholesterol, Calc 124 H HDL Cholesterol 40 TSH Urine RBC 1-5/hpf Urine WBC >100/hpf H Ur Squamous Epith Cells 1-5 /hpf Urine Bacteria Few (2-10) H Urine Yeast 10-30/hpf H Ur Culture Indicated? Specimen cultured U Opiates 300ng/mL cut Positive H Ur Oxycodone Screen Negative Urine Methadone Screen Negative Ur Barbiturates Screen Negative U Tricyclic Antidepress Negative Ur Phencyclidine Scrn Negative Ur Amphetamines Screen Negative U Methamphetamines Scrn Negative Ur MDMA Scrn (Ecstasy) Negative U Benzodiazepines Scrn Negative Urine Cocaine Screen Negative U Marijuana (THC) Screen TNP SARS-CoV-2 (PCR) Assessment & Plan Assessment & Plan narrative: # subacute left thalamic stroke, present on admission -woke up at 2:00 a.m. with right-sided weakness and speech difficulty. Presented to ED outside of tPA window. -CT/CTA head negative. CT neck with 20-30% carotid artery stenosis -start dual antiplatelet therapy for 21 days given NIH of 4, then continue aspirin indefinitely -start atorvastatin 80 mg nightly -allow permissive hypertension for 24 hours, initiate labetalol as needed for SBP greater than 220/120 -hold DVT prophylaxis and use SCDs. 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, patient denies any history of withdrawals -will reassess in AM if CIWA needed -monitor for withdrawal -recommended he reduce his alcohol consumption and spent 16 minutes discussing this # CAD s/p 3 stents -patient does not know when he had stents put in but had 1 in [place] and 2 in [place] -aspirin as above # history of heart valve replacement -patient does not know when or what valve was replaced but states it is a porcine valve # hyperlipidemia -lipid panel with LDL 124 -statin as above # hypertension, chronic -hold home amlodipine, Cardura, metoprolol and valsartan for 24 hours then resume # gout, chronic -hold home allopurinol #pyuria -UA with greater than 100 WBC -patient denies symptoms so will not treat -monitor for urinary symptoms -f/u urine culture Code status is full code. COVID negative. DVT prophylaxis with SCDs. Proxy is his son Alfonso. I have reviewed home meds and used all available resources to reconcile the home meds. Time Spent With Patient Critical Care time: I spent a total of [] minutes of critical care time on this patient's care tod ay; this time is exclusive of procedural time.
[2021-12-04] MEDS: CLOPIDOGREL 75 MG TABLET 300 MG PO (17:20)
--- NOTE | 2021-12-04 17:52 | PC.NURSE ---
no need for ciwa or seizure precautions per . Pt refusing scds. patient also ok to use Topical CBD for his Rt. knee for pain per Dr. Vega
[2021-12-04] MEDS: ATORVASTATIN 20 MG TABLET 80 MG PO (20:55)
[2021-12-04] MEDS: ACETAMINOPHEN 325 MG TABLET 650 MG PO (20:56)
[2021-12-05 03:12] VITALS: BP 143/77; PULSE 62; RESP 22; TEMP 35.9; O2SAT 97
[2021-12-05 07:50] VITALS: BP 133/76; PULSE 60; TEMP 35.9; O2SAT 96
--- NOTE | 2021-12-05 07:50 | P.DS_ITS ---
History of Present Illness History of Present Illness Chief complaint: stroke during the night (2am) Narrative: Jasvir lin is an 86-year-old male with past medical history of previous remote CVA, CAD s/p 3 stents, heart valve replacement, hypertension, osteoarthritis, and gout who presents with right sided weakness and speech difficulty overnight. He awoke at 2am and could not get out of his recliner due to weakness. Patient stays a portion of the year here in [place] but is originally from [place], [place]. He unfortunately waited until morning to come to the ED where he was found to have an NIH of 4. CT/CTA head and neck negative for stroke. Has some bilateral BOZENA of 30% and 20%. Apparently patient was supposed to be taking aspirin but he stopped it years ago despite his history of heart disease. Patient states he already feels like his symptoms are improving with strength returning in his right arm. His right leg continues to be more weak. His speech is improving. He denies chest pain, NV, SOB, diarrhea or urinary symptoms. Discharge Providers Provider Date of admission: 12/04/21 15:16 Discharge Date: 12/05/21 Consults: 12/04/21 16:20 Consult to Discharge Planning Routine Comment: Consult to Occupational Therapy Evaluate & Treat Comment: Physician Instructions: Evaluate and treat Consult to Physical Therapy Evaluate & Treat Comment: Physician Instructions: Evaluate and Treat 12/04/21 16:40 Consult to Set Up Mold Technician Routine Comment: Discharge provider: Scar Vega DO Summary Hospital Course Discharge Diagnosis: # subacute left thalamic stroke, present on admission -woke up at 2:00 a.m. with right-sided weakness and speech difficulty.? Presented to ED outside of tPA window. -CT/CTA head negative.? CT neck with 20-30% carotid artery stenosis -start dual antiplatelet therapy for 21 days given NIH of 4, then continue aspirin indefinitely -start atorvastatin 80 mg nightly -allow permissive hypertension for 24 hours, initiate labetalol as needed for SBP greater than 220/120 -hold DVT prophylaxis and use SCDs. -echocardiogram showed HFpEF 55-60% with mild LVH and diastolic dysfunction, RVSP 38 well seated prosthetic aortic valve. Bubble study not completed. May warrant repeat echo as outpatient to look for PFO. 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, patient denies any history of withdrawals -will reassess in AM if CIWA needed -monitor for withdrawal -recommended he reduce his alcohol consumption and spent 16 minutes discussing this # CAD s/p 3 stents -patient does not know when he had stents put in but had 1 in [place] and 2 in [place] -aspirin as above # previous aortic heart valve replacement -echo shows valve functioning well # hyperlipidemia -lipid panel with LDL 124 -statin as above # hypertension, chronic -held home amlodipine, Cardura, metoprolol and valsartan for 24 hours then resumed on discharge # gout, chronic -held home allopurinol then resumed on dc #pyuria -UA with greater than 100 WBC and yeast -patient denies symptoms so will not treat -monitor for urinary symptoms -urine culture with no growth thus far Hospital Course: Admitted with several hours of right sided weakness and speech difficulty. Was beyond 4.5hr refugio so no tPA given. MRI showed subacute left thalamic stroke. Started on aspirin/plavix for 21 days given NIH of 4. Also lipitor 80 started. Patient did well with PT/OT and did not require further therapies. Echo showed HFpEF of 55-60% but bubble study not done. No events on tele. A1c. 5.2%. Discharged home back on his home BP meds and DAPT for 21 days and high intensity statin. Time Spent with Patient Time spent: Greater than 30 minutes Exam Vital Signs (past 8 hours): - 12/05/21 03:12 Temperature 96.6 F L Pulse Rate 62 Respiratory Rate 22 Blood Pressure 143/77 H Pulse Oximetry 97 Oxygen Flow Rate 0 Oxygen Delivery Method Room Air Oxygen Flow Rate 0 Narrative Exam Narrative: GEN: no acute distress, pleasant male with tanned appearance HEENT: moist mucous membranes, PERRL NECK: trachea midline, no JVD CV: regular rate and rhythm, 2/6 systolic murmur. Midline sternotomy scar present. PULM: clear bilaterally ABD: soft, nontender, nondistended, no organomegaly EXT: warm and well perfused with no edema NEURO: awake, alert, oriented, no facial droop, strength 5/5 in UE's and 4/5 in RLE Objective Labs Result Diagrams: 12/04/21 11:41 12/04/21 11:41 Labs: Laboratory Results - last 24 hr 12/04/21 12/04/21 12/04/21 11:41 11:41 11:41 WBC 4.5 RBC 4.86 Hgb 15.9 Hct 46.4 MCV 95.4 MCH 32.8 MCHC 34.4 RDW 15.6 H Plt Count 139 L Neut % (Auto) 73.0 Lymph % (Auto) 15.5 L Tillman % (Auto) 8.6 Eos % (Auto) 2.2 Baso % (Auto) 0.7 Neut # (Auto) 3300 Lymph # (Auto) 700 L Tillman # (Auto) 400 Eos # (Auto) 100 Baso # (Auto) 0 PT 12.0 INR 1.0 APTT 31 Sodium 143 Potassium 4.1 Chloride 108 H Carbon Dioxide 27 BUN 20 Creatinine 1.00 Estimated GFR > 60 BUN/Creatinine Ratio 20.0 Glucose 99 Hemoglobin A1c Calcium 9.2 Magnesium 1.9 Total Bilirubin 1.4 H AST 27 ALT 22 Alkaline Phosphatase 78 Total Creatine Kinase 41 L CK-MB (CK-2) TNP CK-MB (CK-2) Rel Index TNP Troponin I < 0.012 Total Protein 8.1 Albumin 4.5 Globulin 3.6 Albumin/Globulin Ratio 1.3 Triglycerides Cholesterol LDL Cholesterol, Calc HDL Cholesterol TSH Urine RBC Urine WBC Ur Squamous Epith Cells Urine Bacteria Urine Yeast Ur Culture Indicated? U Opiates 300ng/mL cut Ur Oxycodone Screen Urine Methadone Screen Ur Barbiturates Screen U Tricyclic Antidepress Ur Phencyclidine Scrn Ur Amphetamines Screen U Methamphetamines Scrn Ur MDMA Scrn (Ecstasy) U Benzodiazepines Scrn Urine Cocaine Screen U Marijuana (THC) Screen SARS-CoV-2 (PCR) 12/04/21 12/04/21 12/04/21 11:41 11:41 13:06 WBC RBC Hgb Hct MCV MCH MCHC RDW Plt Count Neut % (Auto) Lymph % (Auto) Tillman % (Auto) Eos % (Auto) Baso % (Auto) Neut # (Auto) Lymph # (Auto) Tillman # (Auto) Eos # (Auto) Baso # (Auto) PT INR APTT Sodium Potassium Chloride Carbon Dioxide BUN Creatinine Estimated GFR BUN/Creatinine Ratio Glucose Hemoglobin A1c 5.2 Calcium Magnesium Total Bilirubin AST ALT Alkaline Phosphatase Total Creatine Kinase CK-MB (CK-2) CK-MB (CK-2) Rel Index Troponin I Total Protein Albumin Globulin Albumin/Globulin Ratio Triglycerides Cholesterol LDL Cholesterol, Calc HDL Cholesterol TSH 0.96 Urine RBC Urine WBC Ur Squamous Epith Cells Urine Bacteria Urine Yeast Ur Culture Indicated? U Opiates 300ng/mL cut Ur Oxycodone Screen Urine Methadone Screen Ur Barbiturates Screen U Tricyclic Antidepress Ur Phencyclidine Scrn Ur Amphetamines Screen U Methamphetamines Scrn Ur MDMA Scrn (Ecstasy) U Benzodiazepines Scrn Urine Cocaine Screen U Marijuana (THC) Screen SARS-CoV-2 (PCR) Negative 12/04/21 12/04/21 12/04/21 13:16 13:16 16:21 WBC RBC Hgb Hct MCV MCH MCHC RDW Plt Count Neut % (Auto) Lymph % (Auto) Tillman % (Auto) Eos % (Auto) Baso % (Auto) Neut # (Auto) Lymph # (Auto) Tillman # (Auto) Eos # (Auto) Baso # (Auto) PT INR APTT Sodium Potassium Chloride Carbon Dioxide BUN Creatinine Estimated GFR BUN/Creatinine Ratio Glucose Hemoglobin A1c Calcium Magnesium Total Bilirubin AST ALT Alkaline Phosphatase Total Creatine Kinase CK-MB (CK-2) CK-MB (CK-2) Rel Index Troponin I Total Protein Albumin Globulin Albumin/Globulin Ratio Triglycerides 78 Cholesterol 180 LDL Cholesterol, Calc 124 H HDL Cholesterol 40 TSH Urine RBC 1-5/hpf Urine WBC >100/hpf H Ur Squamous Epith Cells 1-5 /hpf Urine Bacteria Few (2-10) H Urine Yeast 10-30/hpf H Ur Culture Indicated? Specimen cultured U Opiates 300ng/mL cut Positive H Ur Oxycodone Screen Negative Urine Methadone Screen Negative Ur Barbiturates Screen Negative U Tricyclic Antidepress Negative Ur Phencyclidine Scrn Negative Ur Amphetamines Screen Negative U Methamphetamines Scrn Negative Ur MDMA Scrn (Ecstasy) Negative U Benzodiazepines Scrn Negative Urine Cocaine Screen Negative U Marijuana (THC) Screen TNP SARS-CoV-2 (PCR) PFSH Medical History Hypertension Osteoarthritis Surgical History Previous back surgery Total knee replacement status Social History household members: none Smoking Status: Former smoker alcohol intake: current Discharge Plan Discharge Plan Patient Disposition: Home Provider Discharge Comment: You had a stroke. You will now take aspirin and plavix for 20 days then stop the plavix and continue the aspirin for life. You are also now on a statin for cholesterol which also helps prevent another stroke. Your heart echo looked good. Continue your home blood pressure meds. If you notice symptoms again like this last stroke, such as speech changes or weakness in arms/legs or facial droop come to the ED [facility] and do not wait because you can get clot busting medication to break open the clot. If you wait too long then you are stuck not being able to treat the stroke. Discharge orders & Medications Prescriptions: New aspirin 81 mg Tablet,Delayed Release (Dr/Ec) 81 mg PO DAILY Qty: 90 3RF atorvastatin 80 mg tablet 80 mg PO BEDTIME Qty: 90 0RF clopidogrel 75 mg Tablet 75 mg PO DAILY 20 Days Qty: 20 0RF Continued allopurinol 100 mg tablet 200 mg PO DAILY amlodipine 10 mg tablet 5 mg PO BID Cardura XL 8 MG tablet extended release 24hr 8 mg PO Q DAY Qty: 0 metoprolol succinate [Toprol XL] 25 MG tablet extended release 24 hr 50 mg PO Q DAY Qty: 0 valsartan 160 mg tablet 160 mg PO BID Label Comments: TAKE 1 TABLET BY MOUTH TWICE DAILY Diet/Activity/Treatments Diet: Regular Discharge Data Attending Provider: Scar Vega
[2021-12-05] MEDS: ASPIRIN EC 81 MG TABLET PO (08:43)
[2021-12-05] MEDS: CLOPIDOGREL 75 MG TABLET PO (08:43)
--- NOTE | 2021-12-05 09:47 | PT.IIE ---
Surgical History (Last Reviewed 12/04/21 @ 12:36 by Makenna Oconnell DO) Previous back surgery Total knee replacement status Medical History (Last Reviewed 12/04/21 @ 12:36 by Makenna Oconnell DO) Hypertension Osteoarthritis Physical Therapy Inpatient Evaluation/Re-Eval M1 PT/OT-IP Prior Functional Status Start: 12/05/21 07:59 Freq: NEEDED Status: Active Protocol: Document 12/05/21 09:47 AW (Rec: 12/05/21 11:28 AW [id number]) Medical Review Prior Functional Status Medical History Reviewed Yes: PMH includes remote CVA, CAD s/p stents, HTN, daily alcohol use Communication Pt is [place] and uses B [employer]. Mobility and Gait Pt states he uses a SPC at all times. He has had bilateral TKA. The left functions well. Pt has impaired ROM and strength on the right knee Activities of Daily Living and IADL's Independent with all ADL and IADL needs. Pt is an active dedicated intermodal truck driver. Social History Household Members none Living Arrangements House Number of Floors (Floors) One Floor Number of Stairs To Enter/Railing? Level entrance Home Environment Standard Height Toilet Home Equipment Front Wheel Walker,Straight Cane,Grab Bars In Shower Employment Status Retired Additional Social History Comment Pt states he has a walk-in tub . All home details here refer to [facility] home. 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 His son, Alfonso, [place] [facility] [place] to assist pt at home as needed. M2 PT-IP Current Condition Start: 12/05/21 07:59 Freq: NEEDED Status: Active Protocol: Document 12/05/21 09:47 AW (Rec: 12/05/21 11:28 AW [id number]) Physical Therapy Current Condition Current Condition Evaluation Date 12/05/21 Treatment Diagnosis L thalamic CVA; impaired mobility and gait Onset Date 12/04/21 M3 PT-IP Subjective Start: 12/05/21 07:59 Freq: NEEDED Status: Active Protocol: Document 12/05/21 09:47 AW (Rec: 12/05/21 11:28 AW [id number]) Subjective Physical Therapy Visit Type Type Initial Evaluation Visit Start Time 09:21 Visit Stop Time 09:47 Total Visit Minutes 26 Physical Therapy Visit Comments Patient Comments Pt is willing to participate with PT. Patient Goals None stated. Therapy Pain Assessment Pain When Pain Assessed During Mobility Pain Present Pain Present Pain Reported Location right knee Intensity 3 Scale Used Numeric (0 - 10) M4 PT-IP Mobility and Gait Start: 12/05/21 07:59 Freq: NEEDED Status: Active Protocol: Document 12/05/21 09:47 AW (Rec: 12/05/21 11:28 AW [id number]) PT-Bed Mobility Assessment Supine to Sit Supine to Sit Independent Scooting Scooting to Edge of Bed Independent PT-Transfer Assessment Sit to and From Stand Sit to and from Stand Standby Assistance,Use of Upper Extremities Equipment Transfer Assistive Device Gait Belt,Straight Cane Orthotic/Prosthetic Devices or Brace: No Transfers Transfer Destination Chair,Toilet Transfer Technique ambulated with SPC Transfer Ability Level of Assist Standby Assistance Comments Mobility Comments Pt was lying in bed as PT arrived. BP in supine was 143/ 74 HR 77. Pt sat up EOB IND and stood SBA. He used SPC to ambulate in the halls with gait characterized by decreased LLE knee extension and increased plantarflexion. No LOB was observed. On return to the room, pt entered the bathroom and used the toilet without need for assist. He then walked to and sat in the chair where he was left with call light and all needs in reach. Post tx BP was 149/84 HR 80. Gait Assessment Gait Gait Assistance Required: Standby Assistance Distance (Feet) 150 Able to Maintain Weight Bearing Status Yes During Gait Assistive Devices Assistive Device Gait Belt,Straight Cane Orthotic/Prosthetic Devices or Brace: No Gait Deviations General Gait Pattern Antalgic,Decreased Stride Length,Decreased Feet Clearance,Flexed Trunk,Lateral Trunk Lean,Step-to Gait Factors Limiting Gait Function Factors Limiting Gait Function Decreased Strength,Limited Range of Motion,Pain,Poor Balance Comments Gait Comments See mobility comments for details. Stair Climbing Assessment Comments Stair Climbing Comments Not assessed. No stairs at home. PT-Balance Assessment Sitting Balance and Reactions Static Sitting Balance Ability Good Dynamic Sitting Balance Ability Good Standing Balance and Reactions Static Standing Balance Ability Good Dynamic Standing Balance Ability Fair Device Used SPC M5 PT-IP Objective Assessments Start: 12/05/21 07:59 Freq: NEEDED Status: Active Protocol: Document 12/05/21 09:47 AW (Rec: 12/05/21 11:28 AW [id number]) Orientation Orientation/Cognition Level of Alertness Alert Orientation Name,Day of Week,Place, Situation Language Function Ability Hard of Hearing Safety Awareness Decreased Safety Awareness Gross Range of Motion Lower Extremity ROM Assessment Right Impaired Impairments R knee ~8-110 Strength Upper Extremity Strength Assessment Within Functional Limits Lower Extremity Strength Assessment Right Impaired Hip 4/5 Knee 4-/5 flexion; 4/5 extension Coordination Assessment Gross Coordination Gross Coordination Impaired Assessment Finger to Nose Test Minimal Impairment Pronation/Supination Test Normal Performance Coordination Comments Pt missed target on finger to nose ~5 cm with both UE. Sensation Assessment Sensation Gross Sensation Right LE Impaired Sensation Description Tingling Comments Sensation Comments Pt reports RLE tingling but then states maybe he means pain. No sensation deficits noted on exam. Muscle Tone Muscle Tone WNL Yes Other Assessments Other Other Assessments Vision, ocular motor, and vestibular screening were grossly normal. Pt is wheezy with all activity but denies same when asked. M6 PT-IP Treatment Start: 12/05/21 07:59 Freq: NEEDED Status: Active Protocol: Document 12/05/21 09:47 AW (Rec: 12/05/21 11:28 AW [id number]) Physical Therapy Treatment Education Education Provided Safety M7 PT-IP Assessment and Plan Start: 12/05/21 07:59 Freq: NEEDED Status: Active Protocol: Document 12/05/21 09:47 AW (Rec: 12/05/21 11:28 AW [id number]) PT Summary Assessment and Plan Potential Rehabilitation Potential Good Status of Condition at Evaluation Evolving Summary Impairments Pain,ROM,Strength,Balance, Sensation,Gait Assessment Summary Jasvir is an 86 yo man seen for PT evaluation per stroke protocol. He is modified independent with mobility using a SPC. He has chronic right knee ROM and strength deficits post-TKA ~1 year ago. On assessment, pt has impaired UE coordination bilaterally but this is likely consistent with his baseline. Pt ambulates with SPC today with antalgic pattern affected by limited right knee ROM but has no LOB. He appears to be functioning at or near his baseline. He will have his friend, Chad, and son, Alfonso, to assist as needed at home. Pt will be safe to discharge home with assist once medically stable. Goals Bed Mobility Goal Independent Transfer Goal Independent,Cane Gait Goal Independent,Cane Gait Distance 300 Days to Meet Goals 3 Frequency of Treatment Frequency Of Treatment Once a Day Treatment Plan Physical Therapy Treatment Plan Bed Mobility Training,Transfer Training,Gait Training, Therapeutic Exercise,Balance Retraining,Discharge Planning, Hot or Cold Pack,Neuromuscular Re-ed Precautions Other Precautions falls risk Recommendations To Nursing Amount of Assist Needed Standby Assistance Discharge Recommendations PT Discharge Recommendations Home with Assistance Transportation Needs at Discharge Private Vehicle
--- NOTE | 2021-12-05 10:49 | CM.DANOTE ---
DCP: Case received, EMR reviewed and met with patient. Introduced self and role. Was able to obtain information regarding patient's baseline activity level prior to hospitalization, as well as his current living situation. DCP assessment completed with information currently available. Patient is an 86 year old male who admitted yesterday afternoon to the care of the hospitalist team. PCP: Dr. Kimbrough in [place]. Payer: confirmed: Medicare. Patient came to the hospital via private vehicle secondary to having increased weakness, unable to get out of bed without difficulty. Patient had noted that his right side was working less than normal, moving slow, and neighbor noticed some speech change. Notes indicate that patient does have history of CVA, and cardiac stent. NIH score was 4, and patient had waited until morning to come to the ED. MRI was completed, and patient holds diagnosis of subacute left thalmic stroke. Met with patient in his room. He is alert and oriented, and was sitting up on the edge of the bed. Patient is hard of hearing, did not have his hearing aides with him. Confirmed that he lives in [place] in the winter months, and resides here in the summer. He is independent at his baseline, and he is a . He indicated, his spouse over a year ago, and they were 52 years. He does not have a local primary care provider, but does in [place]. Asked him if he was interested in local providers, he indicated, he has already looked into it, it takes about 3 months to get into see a local provider. Patient is hoping that he can go home. He is working with P.T. P: DCP to continue to follow. Patient could possibly go home today if cleared by P.T. Dottie Michelle RN/School Psychometrist Discharge Planning/Care Management Advanced directive, confirm from FAMILY Start: 12/04/21 16:40 Freq: Q24H Status: Active Protocol: Document 12/04/21 16:40 HCW (Rec: 12/04/21 17:34 HCW [id number]) Advance Directive, confirm on record Time 17:34 Person contacted patient Copy received No CM Discharge Assessment Start: 12/05/21 10:47 Freq: Status: Active Protocol: Document 12/05/21 10:48 (Rec: 12/05/21 10:49 [id number]) Discharge Planning Assessment Assigned Rover Tender Dottie Michelle RN/School Psychometrist Advance Directives? Yes Advance Directives on File No History Provided By Patient,Medical Record Prior Living Arrangements House Household Members none Type of transporation used prior to Drives own vehicle admit Independent with ADL's Yes Is patient alert and oriented? Yes Caregiver for Another No Barriers to Discharge No Discharge Plan Home Transportation Arrangement Self or friend Referrals Initiated None needed Whiteboard Updated in Patient Room with Yes name and ext. # of Rover Tender Review Status In Process Next Review Type Continued Stay Review
[2021-12-05 12:39] VITALS: BMI 27.7
[2021-12-05 13:09] VITALS: BP 132/78; PULSE 62; RESP 20; TEMP 35.5; O2SAT 97
== END 2021-12-05 14:30 | disposition home or self-care (01) | DRG 66 ==
LOC: ED 14:24 → AC 15:26
PROVIDERS: Admitting Provider Student in an Organized Health Care Education/Training Program; Emergency Provider Emergency Medicine; Referring Provider Emergency Medicine; Visit Provider Student in an Organized Health Care Education/Training Program
DX: I63.9 Cerebral infarction, unspecified (principal); I25.10 Atherosclerotic heart disease of native coronary artery without angina pectoris; E78.5 Hyperlipidemia, unspecified; I10 Essential (primary) hypertension; M1A.9XX0 Chronic gout, unspecified, without tophus (tophi); R29.704 NIHSS score 4; R29.701 NIHSS score 1; Z20.822 Contact with and (suspected) exposure to COVID-19; Z72.89 Other problems related to lifestyle; Z95.5 Presence of coronary angioplasty implant and graft; Z95.2 Presence of prosthetic heart valve; Z87.891 Personal history of nicotine dependence
CPT/HCPCS: 36415; 70450; 70496; 70498; 70551; 71045; 80053; 80061; 80305; 81003; 81015; 82550; 82962; 83036; 83735; 84443; 84484; 85025; 85610; 85730; 87086; 87635; 93005; 93306; 97162; 99285; C9803; G0378; Q9967

== ENCOUNTER 2021-12-08 21:02 | Emergency (ER) | payer MEDICARE, OTHER, SELFPAY ==
[2021-12-08 21:05] VITALS: BP 133/77; PULSE 80; RESP 22; TEMP 36.4; O2SAT 96
--- NOTE | 2021-12-08 21:10 | ED_ITS ---
HPI - GI Bleed General Chief complaint: Urogenital-Male Stated complaint: rectal bleeding Time Seen by Provider: 12/08/21 21:10 History of Present Illness HPI Narrative: 86-year-old male history of hypertension, hyperlipidemia, coronary artery disease status post 3 stents, recent admission for subacute left thalamic stroke outside of tPA window, alcohol abuse including sick shots of whiskey daily presents with painless hematuria over the course of the day. He was recently started on plavix as part of his stroke evaluation. He denies any systemic findings such as dizziness, weakness or lightheadedness. He is had no fever or chills. He states that he has had 5 TURPs, most recently in [facility] last April. Related Data Home Medications Medication Instructions Recorded Confirmed doxazosin 8 mg tablet,extended 8 mg PO Q DAY ##0 01/02/17 12/04/21 release 24 hr (Cardura XL) metoprolol succinate 25 mg 50 mg PO Q DAY ##0 01/02/17 12/04/21 tablet,extended release 24 hr (Toprol XL) allopurinol 100 mg tablet 200 mg PO DAILY 11/18/17 12/04/21 amlodipine 10 mg tablet 5 mg PO BID 11/18/17 12/04/21 valsartan 160 mg tablet 160 mg PO BID 12/04/21 12/04/21 Previous Rx's Medication Instructions Recorded aspirin 81 mg tablet,delayed 81 mg PO DAILY #90 tabs 12/05/21 release atorvastatin 80 mg tablet 80 mg PO BEDTIME #90 tabs 12/05/21 clopidogrel 75 mg tablet 75 mg PO DAILY 20 days #20 tabs 12/05/21 Allergies Allergy/AdvReac Type Severity Reaction Status Date / Time No Known Drug Allergies Allergy Unverified 11/18/17 13:22 Review of Systems Review of Systems Narrative: GENERAL: Denies chills, fatigue, malaise, fever, sweats. HEENT: Denies sinus pain, ear pain, sore throat, difficulty swallowing, dizziness. RESPIRATORY: Denies dyspnea, cough, wheezing, hemoptysis, sputum. CARDIOVASCULAR: Denies chest pain, palpitations, orthopnea, edema, GASTROINTESTINAL: Denies nausea, vomiting, abdominal pain, diarrhea, constipation, melena. : See HPI MUSCULOSKELETAL: denies weakness, joint pain, or bony pain SKIN: Denies rash, skin lesions, or other NEUROLOGIC: Denies weakness, headache, numbness, change in speech, confusion, seizures, incoordination. PSYCHIATRIC: No concerning psychosocial issues. 12 point review of systems is negative except for those stated above Patient History Medical History Hypertension Osteoarthritis Surgical History Previous back surgery Total knee replacement status Social History household members: none Smoking Status: Former smoker alcohol intake: current Smoking Status: Former smoker alcohol intake frequency: 3 or more drinks per day Substance Use Type: does not use Exam Narrative Exam Narrative: GENERAL: 86[] year old patient appears stated age. Well-developed patient, in mild distress. HEAD: Atraumatic. Normocephalic. EYES: Pupils equal round and reactive. Extraocular motions intact. No scleral icterus. No injection or drainage. ENT: Nose without bleeding, purulent drainage. Throat without erythema, tonsillar hypertrophy or exudate. Airway patent. NECK: Trachea midline. Non tender CARDIOVASCULAR: Regular rate and rhythm without murmurs, gallops, or rubs. RESPIRATORY: Clear to auscultation. Breath sounds equal bilaterally. No wheezes, rales, or rhonchi. GASTROINTESTINAL: Abdomen soft, non-tender, nondistended. EXTREMITIES: No edema or joint tenderness. BACK: Nontender without deformity or crepitance. No flank tenderness. NEURO: AOx3. SKIN: No rash or erythema of visible areas Initial Vital Signs Initial Vital Signs: Vital Signs Temperature 97.6 F 12/08/21 21:05 Pulse Rate 80 12/08/21 21:05 Respiratory Rate 22 12/08/21 21:05 Blood Pressure 133/77 12/08/21 21:05 Pulse Oximetry 96 12/08/21 21:05 Oxygen Delivery Method 12/08/21 21:05 Course Course Course Narrative: Patient with 3 way Hurt catheter placed and irrigated with 3 L of sterile water to clear. CT IVP without any significant findings. Orders Ordered: ED Orders 12/08/21 21:38 Complete Blood Count AUTO DIFF Stat Partial Thromboplastin Time Stat Prothrombin Time INR Stat 12/08/21 22:30 Comprehensive Metabolic Panel Stat 12/08/21 23:52 IVP [CT abdomen pelvis wo/w con] Stat Discontinued Medications Lidocaine HCl (Lidocaine 2% (Glydo) 6 Ml Gel) 6 ml TOP NOW ONE Stop: 12/08/21 21:45 Last Admin: 12/08/21 22:15 Dose: 6 ml Documented By: AP Consultations Consultation #1: Discussed with on-call Urology, Dr. Daniel, recommends leaving Hurt catheter in place, stopping Plavix and encouraged close follow-up. Vital Signs Vital signs: Vital Signs - 8 hr 12/08/21 21:05 Temperature 97.6 F Pulse Rate 80 Respiratory Rate 22 Blood Pressure 133/77 Pulse Oximetry 96 Oxygen Delivery Method Room Air MDM - GI Bleed Lab Data Result diagrams: 12/08/21 21:38 12/08/21 22:30 Labs: Lab Results 12/08/21 12/08/21 12/08/21 Range/Units 21:38 21:38 22:30 WBC 4.4 L (4.5-11.0) X10^3/uL RBC 4.67 (4.5-5.9) X10^6/uL Hgb 15.1 (13.5-17.5) g/dL Hct 44.7 (41-53) % MCV 95.9 (80-100) fL MCH 32.3 (26-34) PG MCHC 33.7 (30-36) % RDW 15.2 H (11.6-14.8) % Plt Count 151 (150-400) X10^3/uL Neut % (Auto) 70.5 (50-75) % Lymph % (Auto) 16.6 L (25-40) % [place] % (Auto) 9.7 (3-14) % Eos % (Auto) 2.7 (2-4) % Baso % (Auto) 0.5 (0-2) % Neut # (Auto) 3100 (6729-2534) /uL Lymph # (Auto) 700 L (2356-6226) /uL [place] # (Auto) 400 (0-900) /uL Eos # (Auto) 100 (0-450) /uL Baso # (Auto) 0 (0-100) /uL PT 12.4 (10.1-12.7) SECONDS INR 1.1 (0.9-1.3) APTT 30 (26-36) SECONDS Sodium 141 (137-145) mmol/L Potassium 3.8 (3.4-5.1) mmol/L Chloride 109 H (98-107) mmol/L Carbon Dioxide 22 (22-32) mmol/L BUN 22 H (9-20) mg/dL Creatinine 1.01 (0.66-1.25) mg/dL Estimated GFR > 60 (>60) mL/min BUN/Creatinine Ratio 21.8 (6-22) Glucose 99 (80-110) mg/dL Calcium 9.1 (8.4-10.2) mg/dL Total Bilirubin 1.1 (0.2-1.3) mg/dL AST 24 (17-59) IU/L ALT 19 (<50) IU/L Alkaline Phosphatase 69 (38-126) U/L Total Protein 7.3 (6.3-8.2) g/dL Albumin 4.2 (3.5-5.0) g/dL Globulin 3.1 (1.7-4.1) g/dL Albumin/Globulin Ratio 1.4 (1.0-2.8) Imaging Data CT scan - abdomen/pelvis: Radiologist's Impression: No mass, stone or other significant abnormality MDM Narrative Medical decision making narrative: Patient presents with gross hematuria in the absence of any discomfort. His vital signs are stable and H&H stable. He was irrigated with 4 L of sterile water and had the passage of multiple large clots but eventually cleared up significantly. Imaging was unremarkable for any significant finding. Consultation with urology recommends cessation of Plavix, leaving Hurt in and following closely. I did discuss with the patient at length the pros and cons of Plavix use. We discussed the ongoing use of Plavix would likely contribute to ongoing bleeding which could become significant but stopping Plavix puts him at increased risk of stroke. After this discussion and clear understanding he agrees to stop the Plavix at urologist request. Return precautions have been discussed and questions answered to his apparent satisfaction Discharge Plan Departure Patient Disposition: Home Clinical Impression: Hematuria Instructions: DI for Hematuria Activity Restrictions/Additional Instructions: *You have been diagnosed with [hematuria] *What to do: *Please discontinue the use of Plavix but continue aspirin. [ ] New medication prescriptions sent to your pharmacy: [ ] [ ] New medication written as a paper prescription [x ] No new medications given *Please follow up with Dr. Daniel (Urology) in 2-3 days, call for an appointment. Let them know you were seen in the Emergency Department and that we ask that you be seen in follow up. We will electronically transmit a record of today's note *Return to Emergency Department if you should have any new, worsening or concerning symptoms, such as [fever greater than 101 F, shaking chills, worsen ing pain, persistent vomiting or other bothersome symptoms] Prescriptions: No Action allopurinol 100 mg tablet 200 mg PO DAILY amlodipine 10 mg tablet 5 mg PO BID Cardura XL 8 MG tablet extended release 24hr 8 mg PO Q DAY Qty: 0 metoprolol succinate [Toprol XL] 25 MG tablet extended release 24 hr 50 mg PO Q DAY Qty: 0 valsartan 160 mg tablet 160 mg PO BID Label Comments: TAKE 1 TABLET BY MOUTH TWICE DAILY aspirin 81 mg Tablet,Delayed Release (Dr/Ec) 81 mg PO DAILY Qty: 90 3RF atorvastatin 80 mg tablet 80 mg PO BEDTIME Qty: 90 0RF clopidogrel 75 mg Tablet 75 mg PO DAILY 20 Days Qty: 20 0RF Referrals: Jayden Daniel MD [Physician] -
[2021-12-08 21:47] LABS: Add Manual Diff / Slide Review NO; Basophils Absolute Auto 0 /uL (0-100); Basophils Percent Auto 0.5 % (0-2); Eosinophils Absolute Auto 100 /uL (0-450); Eosinophils Percent Auto 2.7 % (2-4); Hematocrit 44.7 % (41-53); Hemoglobin 15.1 g/dL (13.5-17.5); Lymphocytes Absolute Auto 700 /uL (1100-4500); Lymphocytes Percent Auto 16.6 % (25-40); Mean Corpuscular HGB Conc 33.7 % (30-36); Mean Corpuscular Hemoglobin 32.3 PG (26-34); Mean Corpuscular Volume 95.9 fL (80-100); Monocytes Absolute Auto 400 /uL (0-900); Monocytes Percent Auto 9.7 % (3-14); Neutrophils Absolute Auto 3100 /uL (1500-7000); Neutrophils Percent Auto 70.5 % (50-75); Platelet Count 151 X10^3/uL (150-400); Red Blood Cell Count 4.67 X10^6/uL (4.5-5.9); Red Cell Distribution Width 15.2 % (11.6-14.8); White Blood Cell Count 4.4 X10^3/uL (4.5-11.0)
[2021-12-08 21:57] LABS: INR 1.1 (0.9-1.3); Prothrombin Time 12.4 SECONDS (10.1-12.7)
[2021-12-08 22:00] LABS: PTT Partial Thromboplastin Tim 30 SECONDS (26-36)
[2021-12-08] MEDS: LIDOCAINE 2% (GLYDO) 6 ML GEL TOP (22:15)
--- NOTE | 2021-12-08 22:16 | PC.NURSE ---
[address] molina inserted without difficulty with aseptic technique.
[2021-12-08 22:49] LABS: Alanine Aminotransferase 19 IU/L (<50); Albumin 4.2 g/dL (3.5-5.0); Albumin Globulin Ratio 1.4 (1.0-2.8); Alkaline Phosphatase 69 U/L (38-126); Aspartate Aminotransferase 24 IU/L (17-59); BUN Creatinine Ratio 21.8 (6-22); Bilirubin Total 1.1 mg/dL (0.2-1.3); Blood Urea Nitrogen 22 mg/dL (9-20); Calcium 9.1 mg/dL (8.4-10.2); Carbon Dioxide 22 mmol/L (22-32); Chloride 109 mmol/L (98-107); Estimated Glomerular Filt Rate > 60 mL/min (>60); Globulin 3.1 g/dL (1.7-4.1); Glucose 99 mg/dL (80-110); HEMOLYSIS < 15 (0-50); Potassium 3.8 mmol/L (3.4-5.1); Sodium 141 mmol/L (137-145); Total Protein 7.3 g/dL (6.3-8.2)
--- NOTE | 2021-12-08 23:52 | DI.CT.S_ITS ---
PROCEDURE: CT ABDOMEN PELVIS WO/W CON INDICATIONS: significant painless hematuria TECHNIQUE: 5 mm thick noncontrast images acquired from the diaphragm to the symphysis pubis. After the administration of intravenous contrast, 5 mm thick images acquired from the diaphragm to the symphysis pubis after a 10-minute delay. 2 mm thick coronal and sagittal reformats were then performed of the kidneys and ureters. For radiation dose reduction, the following was used: automated exposure control, adjustment of mA and/or kV according to patient size. COMPARISON: None. FINDINGS: Image quality: Excellent. Lung bases: There is atelectasis and scarring in the lung bases. In the left lower lobe, there is a 0.5 cm pulmonary nodule on series 4, image 7. Heart: Heart is normal in size. There is a small hiatal hernia. There is a small amount of loculated right cardiophrenic fluid. Urinary system: The kidneys demonstrate no renal stones on noncontrast images. There is no hydronephrosis. The opacified renal collecting systems demonstrate no suspicious filling defects. Bilateral renal cysts are demonstrated as well as a few small low-density foci which are too small to characterize but likely represent cysts. Mild nonspecific perinephric stranding is demonstrated bilaterally. The ureters are nondistended. Opacified ureters demonstrate no filling defects or stones. There is a Hurt catheter within a partially distended urinary bladder. Indistinct filling defects are present within the partially opacified bladder which may represent blood products. There is bladder wall thickening with associated mild fat stranding. The prostate demonstrates marked enlargement. ABDOMEN: Liver: No mass lesion. Gallbladder: Multiple calcified gallstones are demonstrated within the gallbladder fundus without wall thickening or pericholecystic fluid. Biliary ducts: No biliary ductal dilatation. Pancreas: Unremarkable. Spleen: Normal in size. There is an indistinct hypoattenuating lesion within the posterior spleen measuring up to 1.6 cm. Adrenal Glands: No adrenal nodules. Stomach and Bowel: Stomach, small bowel loops, and colon are normal in caliber and wall thickness. No pericecal inflammatory changes to suggest appendicitis. There is colonic diverticulosis throughout the colon without acute diverticulitis. Peritoneum: No abnormal intraperitoneal fluid. No free air. Ventral Wall: There is a small fat-containing umbilical hernia. Abdominal Nodes: No retroperitoneal or mesenteric adenopathy by size criteria. Vessels: Aorta and inferior vena cava are normal in size. 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 PELVIS: Pelvic Organs: Unremarkable. Pelvic Nodes: No enlarged lymph nodes. Miscellaneous: There are small fat-containing inguinal hernias bilaterally. There are suspected hydroceles within the scrotum. Bones: Visualized osseous structures demonstrate no suspicious focal lesions. IMPRESSION: 1. No evidence of nephrolithiasis or hydronephrosis. 2. No suspicious filling defects within the renal collecting systems. 3. Partially distended urinary bladder with indistinct filling defects which are nonspecific but may reflect blood products. Recommend correlation with cystoscopy. 4. Nonspecific bladder wall thickening may reflect a possible cystitis. 5. Marked prostatic enlargement. 6. Aneurysmal dilatation of the left common iliac artery. 7. Indistinct hypoattenuating lesion within the spleen is nonspecific but cystically likely represents a benign process. A. Cholelithiasis without CT evidence of acute cholecystitis. Dictated by: Itz Perry M.D. on 12/09/2021 at 0:53 Approved by: Itz Perry M.D. on 12/09/2021 at 1:17
== END 2021-12-09 07:27 | disposition home or self-care (01) ==
PROVIDERS: Emergency Provider Emergency Medicine
DX: R31.9 Hematuria, unspecified (principal); Z79.01 Long term (current) use of anticoagulants
CPT/HCPCS: 36415; 74178; 80053; 85025; 85610; 85730; 99284; Q9967